=== PATIENT | female | born 1970 | race Caucasian/White ===

== ENCOUNTER 2016-09-26 06:18 | Emergency (ER) ==
[2016-09-26] MEDS ORDERED: NITROGLYCERIN SL PRN (06:33)
[2016-09-26] MEDS ORDERED: ASPIRIN PO STA (06:33)
--- NOTE | 2016-09-26 06:58 | EKG Report ---
Test Performed on : 09/26/2016 06:40:31 AM Test Reason : Chest Pain Blood Pressure : / mmHG Vent. Rate : 068 BPM Atrial Rate : 068 BPM P-R Int : 172 ms QRS Dur : 088 ms QT Int : 412 ms P-R-T Axes : 047 019 034 degrees QTc Int : 438 ms Normal sinus rhythm. Possible Left atrial enlargement Borderline ECG No previous ECGs available Confirmed by Yu HENLEY, Zhen Lee ([id number]) on 09/27/2016 9:28:31 AM
[2016-09-26 07:07] LABS: MANUAL DIFF NEEDED? NO
[2016-09-26 07:11] LABS: BASO% 0.3 % (0.0-0.8); EOS# 0.36 X1000 (0.0-0.7); EOS% 3.1 % (0.0-10.0); HEMOGLOBIN 15.5 g/dL (12.0-16.0); LYMPH# 3.74 X1000 (1.2-3.4); LYMPH% 32.5 % (20.5-51.1); MCH 32.5 PG (27-31); MCHC 33.7 g/dL (33-37); MCV 96.4 FL (81-99); MONO# 1.33 X1000 (0.11-0.59); MONO% 11.5 % (1.7-9.3); MPV 10.1 FL (7.4-10.4); NEUT% 52.6 % (42.2-75.2); PLT 226 X1000 (130-400); RBC 4.77 XMIL (4.2-5.4)
[2016-09-26 07:43] LABS: AGAP 13; ALKALINE PHOSPHATASE 107 U/L (32-104); BUN 19 mg/dL (8-22); CALCIUM 9.2 mg/dL (8.8-10.2); CHLORIDE 102 mmol/L (98-107); CK PROFILE 37 U/L (24-173); COSMO 284; GOT 16 U/L (10-30); GPT 16 U/L (10-36); LIPASE 39 U/L (13-60); MAGNESIUM 1.7 mg/dL (1.5-2.7); POTASSIUM 4.3 mmol/L (3.5-5.1); SODIUM 141 mmol/L (136-145); TCO2 26 mmol/L (25-35); TOTAL BILIRUBIN 0.11 mg/dL (0.20-1.00); TOTAL PROTEIN 6.5 g/dL (6.3-8.3)
--- NOTE | 2016-09-26 08:11 | PROVIDER DOCUMENTATION ---
HPI-Chest Pain - General Source: patient - History of Present Illness-CP Location: reports: other (See above) Chest Pain Radiation: reports: no radiation Quality of Pain: reports: aching Severity in ED: moderate Onset/Duration: 1 week ago Timing: still present Context/Activities at Onset: reports: none Modifying Factors: improves with: lying down, rest. worse with: massage, movement, palpation Associated Symptoms: reports: denies symptoms Aspirin Treatment Today: provided by ED Similar Symptoms Previously?: No Recently Seen Here or By Another Healthcare Provider: No <Shandra Sánchez - Last Filed: 09/26/16 08:06> <Thuan Hennessy - Last Filed: 09/26/16 10:42> - General Chief Complaint: Chest Pain Stated Complaint: left rib pain Time Seen by Provider: 09/26/16 06:42 Allergies/Adverse Reactions: Patient Allergies Allergy/AdvReac Type Severity Reaction Status Date / Time No Known Allergies Allergy Verified 03/10/16 00:24 Home Medications: Home Medication List Medication Instructions Recorded Confirmed Last Taken Type Lisinopril/Hydrochlorothiazide 1 tab PO DAILY 01/08/15 03/10/16 Unknown History [Lisinopril-Hctz 20-12.5 mg Tab] Hydrocodone/Acetaminophen [[place] 1 each PO Q4-6H PRN PRN #20 tablet 03/10/16 Unknown Rx 7.5-325 Tablet] - History of Present Illness-CP Nature of Presenting Problem: 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 L under breast pain since one week ago and worsened X 3 days ago. When seen at ER, she reports her pain is constant and pushing the rib cage makes the pain worse. Cannot r/o possible injury when she was raising her arms to work on something above the head in her truck. Denies cardiac history in the past. (Shandra Sánchez) Review of Systems - Adult - REVIEW OF SYSTEMS - ADULT Constitutional: reports: no symptoms reported Eyes: reports: no symptoms reported Ears, Nose, Mouth & Throat: reports: no symptoms reported Cardiovascular: reports: see HPI, chest pain Respiratory: reports: no symptoms reported, see HPI Gastrointestinal: reports: no symptoms reported Integumentary: reports: no symptoms reported Neurological: reports: no symptoms reported Psychiatric: reports: no symptoms reported All Other Systems: Reviewed and Negative <Sánchez,Wenli X - Last Filed: 09/26/16 08:06> Past History - Adult - PAST MEDICAL HISTORY-ADULT Review of Records: reports: Old Records Reviewed, Nursing Assessment Review, Medications Reviewed Major Childhood Illnesses: reports: denies history Cardiovascular: reports: HTN Gastrointestinal: reports: denies history, cholelithiasis Musculoskeletal: reports: fibromyalgia - PRIOR SURGERIES/PROCEDURES Surgical/Procedure History: reports: BTL, orthopedic (extremity) (left knee), other (ablation, carpal tunnel) - PRIOR HOSPITALIZATIONS Prior Hospitalizations: reports: none - IMMUNIZATION STATUS Childhood Immunizations: See Nurse Assessment Flu Vaccine: See Nurse Assessment - FAMILY HISTORY Family History: reviewed, not pertinent <Shandra Sánchez - Last Filed: 09/26/16 08:06> Physical Exam-General - PHYSICAL EXAM-ADULT Initial Vital Signs Reviewed: Yes - CONSTITUTIONAL General Appearance: appears well, alert, no apparent distress - EYES Eyes: PERRL/EOMI, pink conjunctivae - HEAD, EARS, NOSE, MOUTH & THROAT HENMT: normocephalic/atraumatic, moist mucous membranes - NECK Neck: non-tender, full range of motion, supple, normal inspection - RESPIRATORY Respiratory: chest non-tender, lungs clear, normal breath sounds, no pleuratic chest pain, no respiratory distress - CARDIOVASCULAR Cardiovascular: normal peripheral pulses, regular rate, rhythm, no edema, no gallop, no JVD - CHEST (BREASTS) Chest/Breast: tenderness (Moderate under breast area tenderness, no bruise and local bruise.) - GASTROINTESTINAL (ABDOMEN) Abdominal Exam: normal bowel sounds, non tender - MUSCULOSKELETAL Back Exam: normal inspection, no CVA tenderness Extremity: normal range of motion, non-tender, normal gait, normal inspection - SKIN Integumentary: normal color, normal turgor, warm/dry - NEUROLOGIC Neurologic: grossly normal, no motor/sensory deficits - PSYCHIATRIC Psych/Mental Status: normal mood/affect, normal thought content, normal thought process, oriented x 3 <Shandra Sánchez - Last Filed: 09/26/16 08:06> Progress <Shandra Sánchez - Last Filed: 09/26/16 08:06> - EKG 1 Time of EKG reading by physician:: 06:40 EKG Read and Signed by:: Shandra Sánchez EKG Interpretation (*Must complete 3 of following elements*): Abnormal (poss lae ) Rate: 68 Rhythm: nsr [place]: normal QRS: normal 2 Time of EKG reading by physician:: 09:36 EKG Read and Signed by:: Shandra Sánchez EKG Interpretation (*Must complete 3 of following elements*): Abnormal Rate: 59 Rhythm: sinus perico [place]: normal QRS: normal SD Interval: normal - XRAY 1 XRAY: Bilateral XRAY Study: Chest Impression: Normal XRAY Interpretation: nad <Thuan Hennessy - Last Filed: 09/26/16 10:42> - PLAN OF CARE/RESULTS Progress/Plan/Lab Results: Orders Category Date Time Status Cardiac Monitoring DIRECTED Care 09/26/16 06:34 Active Saline Loc NOW Care 09/26/16 06:34 Active CHEST-2 VIEWS [RAD] Stat Exams 09/26/16 06:34 Taken CBC WITH ELECTRONIC DIFF [HEME] Stat Lab 09/26/16 06:50 Completed CK PROFILE [SP CHEM] Stat Lab 09/26/16 06:50 Completed COMPREHENSIVE METABOLIC PANEL [CHEM] Stat Lab 09/26/16 06:50 Completed D-DIMER [CHEM] Stat Lab 09/26/16 06:50 Completed LIPASE [CHEM] Stat Lab 09/26/16 06:50 Completed MAGNESIUM [CHEM] Stat Lab 09/26/16 06:50 Completed PRO B-NATRIURETIC PEPTIDE Stat Lab 09/26/16 06:50 Completed PROTIME WITH INR [COAG] Stat Lab 09/26/16 06:50 Completed PTT [COAG] Stat Lab 09/26/16 06:50 Completed TROPONIN T Stat Lab 09/26/16 06:50 Completed UA NIMS W/REFLEX CULT [URINALYSIS] Stat Lab 09/26/16 07:49 Results UDS [URINE DRUG SCREEN] Stat Lab 09/26/16 07:49 Completed URINE MANUAL MICROSCOPIC [URINALYSIS] Stat Lab 09/26/16 07:49 Results Aspirin Med 09/26/16 06:33 Discontinued 325 mg PO STAT STA Nitroglycerin Sl [Nitroglycerin] Med 09/26/16 06:33 Active 0.4 mg SL Q5M PRN PRN EKG [EKG] Stat Ther 09/26/16 06:34 Draft Vital Signs - 24 hr 09/26/16 09/26/16 09/26/16 06:24 07:07 07:43 Temperature 97.8 F Pulse Rate 73 69 64 Respiratory 18 20 20 Rate Blood Pressure 148/95 152/91 140/92 O2 Sat by Pulse 100 95 96 Oximetry Laboratory Tests 09/26/16 09/26/16 09/26/16 06:50 06:50 06:50 WBC 11.52 H RBC 4.77 Hgb 15.5 Hct 46.0 MCV 96.4 MCH 32.5 H MCHC 33.7 RDW Std Deviation 13.0 Plt Count 226 MPV 10.1 Neut % (Auto) 52.6 Lymph % (Auto) 32.5 [place] % (Auto) 11.5 H Eos % (Auto) 3.1 Baso % (Auto) 0.3 Neut # (Auto) 6.05 Lymph # (Auto) 3.74 H [place] # (Auto) 1.33 H Eos # (Auto) 0.36 Baso # (Auto) 0.04 PT INR PTT (Actin FS) D-Dimer 0.17 Sodium 141 Potassium 4.3 Chloride 102 Carbon Dioxide 26 Anion Gap 13 BUN 19 Creatinine 0.7 Estimated GFR/1.73 m2 > 60 BUN/Creatinine Ratio 27 Glucose 112 H Calculated Osmolality 284 Calcium 9.2 Magnesium 1.7 Total Bilirubin 0.11 L AST 16 ALT 16 Alkaline Phosphatase 107 H Creatine Kinase 37 Troponin T Dvd-Y-Pignmabivkr Pept Total Protein 6.5 Albumin 4.0 Globulin 2.5 Albumin/Globulin Ratio 1.6 Lipase 39 Urine Source Urine Color Urine Turbidity Urine pH Ur Specific [place] Urine Protein Ur Glucose (Stick) Ur Ketones (Stick) Urine Blood Urine Nitrite Urine Bilirubin Urobilinogen Dipstick Urine Leukocytes Urine WBC (Auto) Urine RBC (Auto) U Epithel Cells (Auto) Urine Bacteria (Auto) Urine Opiates Screen Ur Oxycodone Screen Ur Methadone, Qual Ur Barbiturates Screen Ur Phencyclidine Scrn Ur Amphetamines Screen U Benzodiazepines Scrn Urine Cocaine Screen U Cannabinoids Screen 09/26/16 09/26/16 09/26/16 06:50 06:50 06:50 WBC RBC Hgb Hct MCV MCH MCHC RDW Std Deviation Plt Count MPV Neut % (Auto) Lymph % (Auto) [place] % (Auto) Eos % (Auto) Baso % (Auto) Neut # (Auto) Lymph # (Auto) [place] # (Auto) Eos # (Auto) Baso # (Auto) PT 9.9 INR 0.97 PTT (Actin FS) 25.9 D-Dimer Sodium Potassium Chloride Carbon Dioxide Anion Gap BUN Creatinine Estimated GFR/1.73 m2 BUN/Creatinine Ratio Glucose Calculated Osmolality Calcium Magnesium Total Bilirubin AST ALT Alkaline Phosphatase Creatine Kinase Troponin T < 0.010 Vym-R-Silojaftmqm Pept 51 Total Protein Albumin Globulin Albumin/Globulin Ratio Lipase Urine Source Urine Color Urine Turbidity Urine pH Ur Specific [place] Urine Protein Ur Glucose (Stick) Ur Ketones (Stick) Urine Blood Urine Nitrite Urine Bilirubin Urobilinogen Dipstick Urine Leukocytes Urine WBC (Auto) Urine RBC (Auto) U Epithel Cells (Auto) Urine Bacteria (Auto) Urine Opiates Screen Ur Oxycodone Screen Ur Methadone, Qual Ur Barbiturates Screen Ur Phencyclidine Scrn Ur Amphetamines Screen U Benzodiazepines Scrn Urine Cocaine Screen U Cannabinoids Screen 09/26/16 09/26/16 07:49 07:49 WBC RBC Hgb Hct MCV MCH MCHC RDW Std Deviation Plt Count MPV Neut % (Auto) Lymph % (Auto) [place] % (Auto) Eos % (Auto) Baso % (Auto) Neut # (Auto) Lymph # (Auto) [place] # (Auto) Eos # (Auto) Baso # (Auto) PT INR PTT (Actin FS) D-Dimer Sodium Potassium Chloride Carbon Dioxide Anion Gap BUN Creatinine Estimated GFR/1.73 m2 BUN/Creatinine Ratio Glucose Calculated Osmolality Calcium Magnesium Total Bilirubin AST ALT Alkaline Phosphatase Creatine Kinase Troponin T Vbi-O-Arvpwyvgrep Pept Total Protein Albumin Globulin Albumin/Globulin Ratio Lipase Urine Source CLEAN CATCH Urine Color YELLOW Urine Turbidity CLEAR Urine pH 6.0 Ur Specific [place] 1.027 Urine Protein NEGATIVE Ur Glucose (Stick) NEGATIVE Ur Ketones (Stick) NEGATIVE Urine Blood NEGATIVE Urine Nitrite NEGATIVE Urine Bilirubin NEGATIVE Urobilinogen Dipstick NORMAL Urine Leukocytes NEGATIVE Urine WBC (Auto) <10 Urine RBC (Auto) <10 U Epithel Cells (Auto) <10 Urine Bacteria (Auto) NEGATIVE Urine Opiates Screen NONE DETECTED Ur Oxycodone Screen NONE DETECTED Ur Methadone, Qual NONE DETECTED Ur Barbiturates Screen PRESUMPTIVE POSITIVE A Ur Phencyclidine Scrn NONE DETECTED Ur Amphetamines Screen NONE DETECTED U Benzodiazepines Scrn NONE DETECTED Urine Cocaine Screen NONE DETECTED U Cannabinoids Screen NONE DETECTED Laboratory Tests 09/26/16 09/26/16 09/26/16 06:50 06:50 06:50 WBC 11.52 H RBC 4.77 Hgb 15.5 Hct 46.0 MCV 96.4 MCH 32.5 H MCHC 33.7 RDW Std Deviation 13.0 Plt Count 226 MPV 10.1 Neut % (Auto) 52.6 Lymph % (Auto) 32.5 [place] % (Auto) 11.5 H Eos % (Auto) 3.1 Baso % (Auto) 0.3 Neut # (Auto) 6.05 Lymph # (Auto) 3.74 H [place] # (Auto) 1.33 H Eos # (Auto) 0.36 Baso # (Auto) 0.04 PT INR PTT (Actin FS) D-Dimer 0.17 Sodium 141 Potassium 4.3 Chloride 102 Carbon Dioxide 26 Anion Gap 13 BUN 19 Creatinine 0.7 Estimated GFR/1.73 m2 > 60 BUN/Creatinine Ratio 27 Glucose 112 H Calculated Osmolality 284 Calcium 9.2 Magnesium 1.7 Total Bilirubin 0.11 L AST 16 ALT 16 Alkaline Phosphatase 107 H Creatine Kinase 37 Troponin T Aqz-D-Vnqkcblapqp Pept Total Protein 6.5 Albumin 4.0 Globulin 2.5 Albumin/Globulin Ratio 1.6 Lipase 39 Urine Source Urine Color Urine Turbidity Urine pH Ur Specific [place] Urine Protein Ur Glucose (Stick) Ur Ketones (Stick) Urine Blood Urine Nitrite Urine Bilirubin Urobilinogen Dipstick Urine Leukocytes Urine WBC (Auto) Urine RBC (Auto) U Epithel Cells (Auto) Urine Bacteria (Auto) Urine Crystals Small Round Cells Urine Casts Urine Yeast-like Cells Urine Opiates Screen Ur Oxycodone Screen Ur Methadone, Qual Ur Barbiturates Screen Ur Phencyclidine Scrn Ur Amphetamines Screen U Benzodiazepines Scrn Urine Cocaine Screen U Cannabinoids Screen 09/26/16 09/26/16 09/26/16 06:50 06:50 06:50 WBC RBC Hgb Hct MCV MCH MCHC RDW Std Deviation Plt Count MPV Neut % (Auto) Lymph % (Auto) [place] % (Auto) Eos % (Auto) Baso % (Auto) Neut # (Auto) Lymph # (Auto) [place] # (Auto) Eos # (Auto) Baso # (Auto) PT 9.9 INR 0.97 PTT (Actin FS) 25.9 D-Dimer Sodium Potassium Chloride Carbon Dioxide Anion Gap BUN Creatinine Estimated GFR/1.73 m2 BUN/Creatinine Ratio Glucose Calculated Osmolality Calcium Magnesium Total Bilirubin AST ALT Alkaline Phosphatase Creatine Kinase Troponin T < 0.010 Tcv-X-Kdrciuxuzhv Pept 51 Total Protein Albumin Globulin Albumin/Globulin Ratio Lipase Urine Source Urine Color Urine Turbidity Urine pH Ur Specific [place] Urine Protein Ur Glucose (Stick) Ur Ketones (Stick) Urine Blood Urine Nitrite Urine Bilirubin Urobilinogen Dipstick Urine Leukocytes Urine WBC (Auto) Urine RBC (Auto) U Epithel Cells (Auto) Urine Bacteria (Auto) Urine Crystals Small Round Cells Urine Casts Urine Yeast-like Cells Urine Opiates Screen Ur Oxycodone Screen Ur Methadone, Qual Ur Barbiturates Screen Ur Phencyclidine Scrn Ur Amphetamines Screen U Benzodiazepines Scrn Urine Cocaine Screen U Cannabinoids Screen 09/26/16 09/26/16 07:49 07:49 WBC RBC Hgb Hct MCV MCH MCHC RDW Std Deviation Plt Count MPV Neut % (Auto) Lymph % (Auto) [place] % (Auto) Eos % (Auto) Baso % (Auto) Neut # (Auto) Lymph # (Auto) [place] # (Auto) Eos # (Auto) Baso # (Auto) PT INR PTT (Actin FS) D-Dimer Sodium Potassium Chloride Carbon Dioxide Anion Gap BUN Creatinine Estimated GFR/1.73 m2 BUN/Creatinine Ratio Glucose Calculated Osmolality Calcium Magnesium Total Bilirubin AST ALT Alkaline Phosphatase Creatine Kinase Troponin T Dep-H-Tqnhlfwephr Pept Total Protein Albumin Globulin Albumin/Globulin Ratio Lipase Urine Source CLEAN CATCH Urine Color YELLOW Urine Turbidity CLEAR Urine pH 6.0 Ur Specific [place] 1.027 Urine Protein NEGATIVE Ur Glucose (Stick) NEGATIVE Ur Ketones (Stick) NEGATIVE Urine Blood NEGATIVE Urine Nitrite NEGATIVE Urine Bilirubin NEGATIVE Urobilinogen Dipstick NORMAL Urine Leukocytes NEGATIVE Urine WBC (Auto) <10 Urine RBC (Auto) <10 U Epithel Cells (Auto) <10 Urine Bacteria (Auto) NEGATIVE Urine Crystals CA OXALATE PRESENT Small Round Cells Not Reportable Urine Casts Not Reportable Urine Yeast-like Cells Not Reportable Urine Opiates Screen NONE DETECTED Ur Oxycodone Screen NONE DETECTED Ur Methadone, Qual NONE DETECTED Ur Barbiturates Screen PRESUMPTIVE POSITIVE A Ur Phencyclidine Scrn NONE DETECTED Ur Amphetamines Screen NONE DETECTED U Benzodiazepines Scrn NONE DETECTED Urine Cocaine Screen NONE DETECTED U Cannabinoids Screen NONE DETECTED (Thuan Hennessy) Departure <Shandra Sánchez - Last Filed: 09/26/16 08:06> - Departure Time of Disposition Order: 10:42 Certified Medical Emergency: Emergent <Thuan Hennessy - Last Filed: 09/26/16 10:42> - Departure DIAGNOSIS: Atypical chest pain, Chest wall pain Disposition: HOME 01 Condition: Stable Additional Instructions: ED Follow Up Instructions: You have been treated by a care provider in the Emergency Department. These instructions are being provided to you so you can have an understanding of how to care for yourself upon discharge. Upon discharge from the Emergency Department, you are responsible for making arrangements for follow-up care by a physician of your choice. Take all prescribed medications as directed. Return to the Emergency Department immediately for any new or worsening symptoms. You may call the Physician Referral phone number at [phone] to obtain a list of Physicians who are taking new patients. Referrals: None,PCP [Primary Care Provider] - Attestation - Scribe Verification/Attestation Scribe:: Thuan Hennessy Acting as Scribe for:: Shandra Sánchez Scribe documention review:: This chart was documented by a scribe and accurately reflects the service the provider performed and the decisions made by the provider. <Thuan Hennessy - Last Filed: 09/26/16 10:42> Physician Attestation - Physician Attestation I, the provider, attest to the following statement:: Shandra Sánchez Physician documentation Attestation:: This documentation recorded by the scribe accurately reflects the service I personally performed and the decisions made by me. <Thuan Hennessy - Last Filed: 09/26/16 10:42>
[2016-09-26 08:16] LABS: URINE CULTURE NEEDED? NO; URINE SOURCE CLEAN CATCH
[2016-09-26 08:32] LABS: UR AMPHETAMINES QUAL NONE DETECTED (NONE DETECT); UR BARBITUATES QUAL PRESUMPTIVE POSITIVE (NONE DETECT); UR BENZODIAZEPIN QUAL NONE DETECTED (NONE DETECT); UR CANNABINOIDS QUAL NONE DETECTED (NONE DETECT); UR COCAINE QUAL NONE DETECTED (NONE DETECT); UR METHADONE QUAL NONE DETECTED (NONE DETECT); UR OPIATES QUAL NONE DETECTED (NONE DETECT); UR OXYCODONE QUAL NONE DETECTED (NONE DETECT); UR PCP QUAL NONE DETECTED (NONE DETECT)
[2016-09-26 08:33] LABS: INR 0.97; PROTIME 9.9 Seconds (9.2-11.7); PTT 25.9 Seconds (22.0-36.0)
[2016-09-26 08:44] LABS: BILIRUBIN URINE NEGATIVE (NEGATIVE); BLOOD URINE NEGATIVE (NEGATIVE); COLOR YELLOW; GLUCOSE URINE NEGATIVE (NEGATIVE); LEUKOCYTES URINE NEGATIVE (NEGATIVE); NITRITE URINE NEGATIVE (NEGATIVE); PROTEIN URINE NEGATIVE (NEGATIVE); SP GRAVITY URINE 1.027; TURBIDITY URINE CLEAR (CLEAR); UROBILINOGEN URINE NORMAL (NORMAL)
[2016-09-26 08:46] LABS: URINE MICRO REVIEW NEEDED? YES
[2016-09-26 08:53] LABS: UR EPITHELIAL CELLS <10 /HPF (<10); URINE BACTERIA NEGATIVE /HPF; URINE RBC <10 /HPF (<10); URINE WBC <10 /HPF (<10)
--- NOTE | 2016-09-26 09:04 | Diag Imaging Result Document ---
PROCEDURE NAME: CHEST-2 VIEWS - 09/26/2016 CHEST X-RAY 2 VIEWS, 09/26/2016: COMPARISON: 03/10/2017 FINDINGS: The lungs are normally expanded and clear. Heart size and mediastinal contours are normal. No pneumothorax or pleural effusion. IMPRESSION: Negative exam.
[2016-09-26 09:10] LABS: URINE CRYSTALS CA OXALATE PRESENT
[2016-09-26 10:22] VITALS: BP 146/90
--- NOTE | 2016-09-27 05:40 | EKG Report ---
Test Performed on : 09/26/2016 09:36:10 AM Test Reason : No Order in enVerid Blood Pressure : / mmHG Vent. Rate : 059 BPM Atrial Rate : 059 BPM P-R Int : 166 ms QRS Dur : 090 ms QT Int : 458 ms P-R-T Axes : 014 010 022 degrees QTc Int : 453 ms Sinus bradycardia. Otherwise normal ECG When compared with ECG of 26-SEP-2016 06:40, (Unconfirmed) No significant change was found Unconfirmed Result
== END 2016-09-26 10:55 | disposition home or self-care (01) ==
LOC: ED 06:18
DX: R07.89 Other chest pain (principal); I10 Essential (primary) hypertension; M79.7 Fibromyalgia; R94.31 Abnormal electrocardiogram [ECG] [EKG]; Z79.899 Other long term (current) drug therapy
CPT/HCPCS: 71020; 80053; 81001; 82550; 83690; 83735; 83880; 84484; 85025; 85379; 85610; 85730; 93005; G0480; 80324; 80345; 80346; 80349; 80353; 80358; 80361; 80365; 83992